=== PATIENT | female | born 1985 | race American Indian/Alaskan Native ===

== ENCOUNTER 2016-09-08 21:12 | Emergency (ER) | payer SELFPAY ==
[2016-09-08 21:28] VITALS: BP 129/76
[2016-09-09] MEDS ORDERED: D5NS 2,000 ML IV ONE (01:57)
[2016-09-09] MEDS ORDERED: ZOFRAN ONE (01:57)
[2016-09-09] MEDS ORDERED: TYLENOL ONE (01:57)
[2016-09-09] MEDS ORDERED: PEPCID IV ONE ×2 (01:58→01:59)
[2016-09-09] MEDS ORDERED: TYLENOL PO ONE (01:59)
[2016-09-09] MEDS ORDERED: ZOFRAN IV ONE (01:59)
[2016-09-09] MEDS ORDERED: D5NS 1,000 ML IV SCH (02:00)
[2016-09-09] MEDS: D5NS 1,000 ML IV SCH ×2 (02:20→04:32)
[2016-09-09 02:35] LABS: Bilirubin,Urine NEG (Negative); Blood,Urine NEG (Negative); Ketones,Urine NEG (Negative); Leukocyte Esterase,Urine NEG (Negative); Mucus,Urine FEW /HPF; Nitrite,Urine NEG (Negative); Protein,Urine <15 mg/dL mg/dL (Negative)
[2016-09-09 02:37] LABS: Hematocrit 34.5 % (30.3-42.9); Hemoglobin 10.6 gm/dl (10.1-14.3); Mean Corpuscular HGB Conc 31 % (30-34); Platelet Count 460 K/mm3 (140-440); Red Blood Count 5.12 M/mm3 (3.65-5.03); White Blood Count 10.2 K/mm3 (4.5-11.0)
[2016-09-09 02:59] LABS: Alanine Aminotransferase 19 units/L (7-56); Albumin 3.8 g/dL (3.9-5); Alkaline Phosphatase 62 units/L (35-129); Bilirubin,Total 0.2 mg/dL (0.1-1.2); Blood Urea Nitrogen 8 mg/dL (7-17); Carbon Dioxide 22 mmol/L (22-30); Chloride 100.1 mmol/L (98-107); Glucose 82 mg/dL (65-100); Sodium 137 mmol/L (137-145); Total Protein 7.6 g/dL (6.3-8.2)
[2016-09-09 03:03] LABS: Anion Gap 19 mmol/L
[2016-09-09 03:18] LABS: Mean Corpuscular Hemoglobin 21 pg (28-32); Mean Corpuscular Volume 68 fl (79-97); Red Cell Distribution Width 26.8 % (13.2-15.2)
--- NOTE | 2016-09-09 03:56 | Ultrasound Report ---
FINAL REPORT PROCEDURE: US OB transvaginal and transabdominal TECHNIQUE: Real-time transabdominal and transvaginal sonography of the uterus, placenta, amniotic fluid, adnexa, and fetus was performed with image documentation. Measurements were obtained to determine age/size. M-mode Doppler was used to document heartbeat. CPT 16878 and 06405 HISTORY: abd pain preg COMPARISON: No prior studies are available for comparison. FINDINGS: ADDITIONAL GESTATION: None. CRL: 54 mm, which corresponds to a gestational age of: 12 weeks, 0 days. Yolk Sac: Normal. Embryonic Cardiac Activity: 162 beats per minute Gestational Sac: Normal. Amniotic fluid: Normal. Cervix: Normal. Right Ovary: Normal. Left Ovary: Not visualized on this study Estimated delivery date: 03/24/2017 IMPRESSION: 1. Single live intrauterine gestation at approximately 12 weeks, 0 days. 2. EDC by US 03/24/2017 3. Complete anatomic survey at 18-20 weeks suggested. PROCEDURE: TECHNIQUE: HISTORY: COMPARISON: FINDINGS: IMPRESSION:
--- NOTE | 2016-09-09 03:56 | Ultrasound Report ---
FINAL REPORT PROCEDURE: US OB TRANSVAGINAL TECHNIQUE: Real-time transabdominal and transvaginal sonography of the uterus, placenta, amniotic fluid, adnexa, and fetus was performed with image documentation. Measurements were obtained to determine age/size. M-mode Doppler was used to document heartbeat. CPT 34904 and 48420 HISTORY: abd pain preg COMPARISON: No prior studies are available for comparison. FINDINGS: ADDITIONAL GESTATION: None. CRL: 54 mm, which corresponds to a gestational age of: 12 weeks, 0 days. Yolk Sac: Normal. Embryonic Cardiac Activity: 162 beats per minute Gestational Sac: Normal. Amniotic fluid: Normal. Cervix: Normal. Right Ovary: Normal. Left Ovary: Not visualized on this study Estimated delivery date: 03/24/2017 IMPRESSION: 1. Single live intrauterine gestation at approximately 12 weeks, 0 days. 2. EDC by US 03/24/2017 3. Complete anatomic survey at 18-20 weeks suggested.
--- NOTE | 2016-09-09 04:52 | Emergency Department Report ---
ED N/V/D HPI - General Chief complaint: Nausea/Vomiting/Diarrhea Stated complaint: NAUSEA, CHEST PAIN Time Seen by Provider: 09/09/16 01:47 Source: patient Mode of arrival: Ambulatory Limitations: No Limitations - History of Present Illness Initial comments: 30-year-old female with a past medical history presents to the hospital complains of . She said nausea vomiting 1 week. Patient unable to tolerate food or liquid intake. She complains of headache and epigastric pain. Patient complains of 7/10 chest pain with vomiting episodes and bad heartburn. Patient vomited a little blood yesterday. She complains of black stools and constipation. No reports of fever. This her third she has 2 living children delivered by . No previous history of ectopic, miscarriages, or abortions. No dysuria, fever, or vaginal bleeding reported. - Related Data Previous Rx's Medication Instructions Recorded Last Taken Type Famotidine [Pepcid] 20 mg PO BID #60 tablet 09/09/16 Unknown Rx Ondansetron [Zofran Odt] 4 mg PO Q8HR PRN #20 tab.rapdis 09/09/16 Unknown Rx Allergies Allergy/AdvReac Type Severity Reaction Status Date / Time No Known Allergies Allergy Unverified 09/09/16 01:34 ED Review of Systems ROS: Stated complaint: NAUSEA, CHEST PAIN Other details as noted in HPI Comment: All other systems reviewed and negative Other: Constitutional: No fevers chills Eyes: No eye pain visual changes ENT: No ear pain or throat pain Neck: Denies pain Respiratory: Denies cough wheezing shortness of breath Cardiovascular: Denies palpitations, syncope GI: As per HPI : Denies dysuria Musculoskeletal: Denies back pain Skin: Denies rash, lesions, erythema Neurologic: Denies headache, numbness, weakness Psychiatric: Denies suicidal ideation, hallucinations ED Past Medical Hx - Past Medical History Previous Medical History?: No - Surgical History Past Surgical History?: Yes Additional Surgical History: X2 - Social History Smoking Status: Never Smoker Substance Use Type: None - Medications Home Medications: Home Medications Medication Instructions Recorded Confirmed Last Taken Type Famotidine [Pepcid] 20 mg PO BID #60 tablet 09/09/16 Unknown Rx Ondansetron [Zofran Odt] 4 mg PO Q8HR PRN #20 tab.rapdis 09/09/16 Unknown Rx ED Physical Exam - General Limitations: No Limitations - Other Other exam information: General: No limitations, patient is alert in no acute distress Head exam: Atraumatic, normocephalic Eyes exam: Normal appearance, pupils equal reactive to light, extraocular movements intact ENT: Moist mucous membrane, normal oropharynx Neck exam: Normal inspection, full range of motion, no meningismus nontender Respiratory exam: Clear to auscultation bilateral, no wheezes, rales, crackles Cardiovascular: Normal rate and rhythm, normal heart sounds Abdomen: Soft, nondistended, epigastric tenderness, with normal bowel sounds, no rebound, or guarding Rectal: Light brown stool guaiac negative Extremity: Full range of motion normal inspection no deformity Back: Normal Inspection, full range of motion, no tenderness Neurologic: Alert, oriented x3, cranial nerves intact, no motor or sensory deficit Psychiatric: normal affect, normal mood Skin: Warm, dry, intact ED Course Vital Signs 09/08/16 09/09/16 21:15 02:10 Temperature 98.3 F Pulse Rate 76 Respiratory 18 18 Rate Blood Pressure 129/76 Blood Pressure 129/76 [Left] O2 Sat by Pulse 100 Oximetry - Reevaluation(s) Reevaluation #1: 09/09/16 04:50 Patient received Zofran, D5NS 2 L,, IV Pepcid, and Tylenol with improvement in pain his symptoms ED Medical Decision Making - Lab Data Result diagrams: 09/09/16 02:20 09/09/16 02:20 Lab Results 09/09/16 09/09/16 09/09/16 Range/Units 01:30 01:59 02:20 WBC 10.2 (4.5-11.0) K/mm3 RBC 5.12 H (3.65-5.03) M/mm3 Hgb 10.6 (10.1-14.3) gm/dl Hct 34.5 (30.3-42.9) % MCV 68 L (79-97) fl MCH 21 L (28-32) pg MCHC 31 (30-34) % RDW 26.8 H (13.2-15.2) % Plt Count 460 H (140-440) K/mm3 Sodium (137-145) mmol/L Potassium (3.6-5.0) mmol/L Chloride (98-107) mmol/L Carbon Dioxide (22-30) mmol/L Anion Gap mmol/L BUN (7-17) mg/dL Creatinine (0.7-1.2) mg/dL Estimated GFR ml/min BUN/Creatinine Ratio % Glucose (65-100) mg/dL Calcium (8.4-10.2) mg/dL Total Bilirubin (0.1-1.2) mg/dL AST (5-40) units/L ALT (7-56) units/L Alkaline Phosphatase (35-129) units/L Total Protein (6.3-8.2) g/dL Albumin (3.9-5) g/dL Albumin/Globulin Ratio % Lipase (13-60) units/L HCG, Quant [id number] H (0-4) mIU/mL Urine Color Yellow (Yellow) Urine Turbidity Clear (Clear) Urine pH 7.0 (5.0-7.0) Ur Specific [place] 1.018 (1.003-1.030) Urine Protein <15 mg/dl (Negative) mg/dL Urine Glucose (UA) Neg (Negative) mg/dL Urine Ketones Neg (Negative) mg/dL Urine Blood Neg (Negative) Urine Nitrite Neg (Negative) Urine Bilirubin Neg (Negative) Urine Urobilinogen 2.0 (<2.0) mg/dL Ur Leukocyte Esterase Neg (Negative) Urine WBC (Auto) 2.0 (0.0-6.0) /HPF Urine RBC (Auto) 1.0 (0.0-6.0) /HPF U Epithel Cells (Auto) 6.0 (0-13.0) /HPF Urine Mucus Few /HPF 09/09/16 09/09/16 Range/Units 02:20 02:20 WBC (4.5-11.0) K/mm3 RBC (3.65-5.03) M/mm3 Hgb (10.1-14.3) gm/dl Hct (30.3-42.9) % MCV (79-97) fl MCH (28-32) pg MCHC (30-34) % RDW (13.2-15.2) % Plt Count (140-440) K/mm3 Sodium 137 (137-145) mmol/L Potassium 4.0 (3.6-5.0) mmol/L Chloride 100.1 (98-107) mmol/L Carbon Dioxide 22 (22-30) mmol/L Anion Gap 19 mmol/L BUN 8 (7-17) mg/dL Creatinine 0.4 L (0.7-1.2) mg/dL Estimated GFR > 60 ml/min BUN/Creatinine Ratio 20.00 % Glucose 82 (65-100) mg/dL Calcium 9.0 (8.4-10.2) mg/dL Total Bilirubin 0.2 (0.1-1.2) mg/dL AST 31 (5-40) units/L ALT 19 (7-56) units/L Alkaline Phosphatase 62 (35-129) units/L Total Protein 7.6 (6.3-8.2) g/dL Albumin 3.8 L (3.9-5) g/dL Albumin/Globulin Ratio 1.0 % Lipase 39 (13-60) units/L HCG, Quant (0-4) mIU/mL Urine Color (Yellow) Urine Turbidity (Clear) Urine pH (5.0-7.0) Ur Specific [place] (1.003-1.030) Urine Protein (Negative) mg/dL Urine Glucose (UA) (Negative) mg/dL Urine Ketones (Negative) mg/dL Urine Blood (Negative) Urine Nitrite (Negative) Urine Bilirubin (Negative) Urine Urobilinogen (<2.0) mg/dL Ur Leukocyte Esterase (Negative) Urine WBC (Auto) (0.0-6.0) /HPF Urine RBC (Auto) (0.0-6.0) /HPF U Epithel Cells (Auto) (0-13.0) /HPF Urine Mucus /HPF - Radiology Data Radiology results: report reviewed (transvaginal /pelvic ultrasound: A 12 week IUP) - Medical Decision Making The patient has a viable IUP. No signs of infection. Improved with ED treatment. Patient feels better and tolerating by mouth. Will be sent home with medications and encourage [facility] follow - Differential Diagnosis ectopic , hyperemesis, molar , Critical Care Time: No Critical care attestation.: If time is entered above; I have spent that time in minutes in the direct care of this critically ill patient, excluding procedure time. ED Disposition Clinical Impression: 12 weeks gestation of , Nausea/vomiting in , GERD ( gastroesophageal reflux disease) Disposition: OP ADMITTED IP TO THIS HOSP Is pt being admited?: No Condition: Stable Instructions: Hyperemesis Gravidarum (ED), Gastroesophageal Reflux Disease (ED) Additional Instructions: Take the medications as prescribed. Return if symptoms worsen. Prescriptions: Famotidine [Pepcid] 20 mg PO BID #60 tablet Ondansetron [Zofran Odt] 4 mg PO Q8HR PRN #20 tab.rapdis PRN Reason: Nausea And Vomiting Referrals: DORA SIEGEL MD [Staff Physician] - 3-5 Days (grocery packer ) Time of Disposition: 05:20
[2016-09-09 04:59] LABS: Anisocytosis 1+; Blastocytes % (Manual) 0 %; Eosinophils % (Manual) 0 % (0.0-4.3)
[2016-09-09 05:00] LABS: Diff Status Complete; Hypochromasia 1+; Large Platelets Few; Tear Drop Cells Few
== END 2016-09-09 05:32 | disposition admitted as inpatient to this hospital (09) ==
LOC: ED 21:12
DX: O21.9 Vomiting of pregnancy, unspecified (principal); R11.0 Nausea; K21.9 Gastro-esophageal reflux disease without esophagitis; Z3A.12 12 weeks gestation of pregnancy
CPT/HCPCS: 36415; 76801; 76817; 80053; 81001; 82271; 83690; 84702; 85007; 85025; 96361; 96374; 96375; 99284; J2405; J7042